=== PATIENT | male | born 1990 | race Two or more races ===

== ENCOUNTER 2017-09-10 07:46 | Emergency (ER) | payer OTHER ==
[2017-09-10] MEDS: NAPROXEN 500 MG TABLET PO (08:21)
[2017-09-10] MEDS: HYDROcodone/APAP 5/325MG 1 TAB TABLET PO (08:21)
[2017-09-10] MEDS: diazePAM 5 MG TABLET PO (08:21)
[2017-09-10] MEDS: predniSONE 20 MG TABLET PO (08:21)
== END 2017-09-10 08:27 | disposition home or self-care (01) ==
LOC: ER 07:46
DX: M54.41 Lumbago with sciatica, right side (principal)
CPT/HCPCS: 99284; J7512